=== PATIENT | female | born 1985 | race American Indian/Alaskan Native ===

== ENCOUNTER 2017-07-10 12:54 | Inpatient (IN) | payer OTHER ==
[2017-07-10 13:10] VITALS: BMI 25.9
--- NOTE | 2017-07-10 13:30 | ED PDOC ---
Arrival/HPI - General Chief Complaint: Shortness Of Breath Time Seen by Provider: 07/10/17 12:59 Historian: Patient - History of Present Illness Narrative History of Present Illness (Text): 07/10/17 13:00 No Good is a 31 year old female, whose past medical history includes anemia , who presents to the emergency department complaining of dyspnea on exertion and orthopnea for a few days. Patient notes that she just delivered her son on June 26. She has also experienced feet swelling and generalizes soreness. Patient last lab results on June 08 shows hemoglobin level at 9 and hematocrit level at 31. No other complaints offered at this time. Time/Duration: < week Symptom Onset: Gradual Symptom Course: Unchanged Activities at Onset: Light Context: Home Past Medical History - Provider Review Nursing Documentation Reviewed: Yes - Psychiatric Hx Substance Use: No Family/Social History - Physician Review Nursing Documentation Reviewed: Yes Family/Social History: No Known Family HX Smoking Status: Light Smoker < 10 Cigarettes Daily Hx Alcohol Use: No Hx Substance Use: No Allergies/Home Meds Allergies/Adverse Reactions: Allergies crabs Allergy (Uncoded 07/10/17 13:08) VOMITING Home Medications: Home Meds Medication Instructions Recorded Confirmed Multivit/Folic Acid/I 1 tab PO DAILY 07/10/17 07/10/17 [ Plus] Review of Systems - Physician Review All systems were reviewed & negative as marked: Yes - Review of Systems Constitutional: absent: Fevers, Night Sweats Eyes: absent: Vision Changes ENT: absent: Hearing Changes Respiratory: Other (Orthopnea) Cardiovascular: LEAL Gastrointestinal: absent: Abdominal Pain Genitourinary Female: absent: Dysuria, Frequency Musculoskeletal: absent: Arthralgias, Back Pain Skin: absent: Rash, Pruritis Neurological: absent: Headache, Dizziness Hemo/Lymphatic: absent: Adenopathy Psychiatric: absent: Anxiety, Depression Physical Exam Vital Signs Reviewed: Yes Vital Signs Temp Pulse Resp BP Pulse Ox 07/10/17 21:24 131 H 22 161/117 H 100 07/10/17 20:47 112 H 18 171/111 H 100 07/10/17 20:13 117 H 20 159/93 H 99 07/10/17 19:30 159/93 H 07/10/17 19:13 132 H 18 157/53 H 98 07/10/17 15:22 113 H 19 142/103 H 98 07/10/17 13:51 19 99 07/10/17 13:16 97.7 F 123 H 24 141/98 H 98 07/10/17 13:10 98.7 F 128 H 20 146/103 H 95 Temperature: Afebrile Blood Pressure: Hypertensive Pulse: Tachycardic (hyperdynamic) Respiratory Rate: Normal Appearance: Positive for: Well-Appearing, Non-Toxic, Comfortable Pain Distress: None Mental Status: Positive for: Alert and Oriented X 3 - Systems Exam Head: Present: Atraumatic, Normocephalic Pupils: Present: PERRL Extroacular Muscles: Present: EOMI Conjunctiva: Present: Other (Pale) Mouth: Present: Moist Mucous Membranes Neck: Present: Normal Range of Motion Respiratory/Chest: Present: Clear to Auscultation, Good Air Exchange. No: Respiratory Distress, Accessory Muscle Use Cardiovascular: Present: Regular Rate and Rhythm, Normal S1, S2. No: Murmurs Abdomen: Present: Normal Bowel Sounds. No: Tenderness, Distention, Peritoneal Signs Back: Present: Normal Inspection Upper Extremity: Present: Normal Inspection. No: Cyanosis, Edema Lower Extremity: Present: Normal Inspection. No: Edema Neurological: Present: GCS=15, CN II-XII Intact, Speech Normal Skin: Present: Warm, Dry, Normal Color. No: Rashes Psychiatric: Present: Alert, Oriented x 3, Normal Insight, Normal Concentration Medical Decision Making ED Course and Treatment: 07/10/17 13:34 Impression: 31 year old female complaining of dyspnea on exertion and orthopnea for a few days Differential Diagnosis included but are not limited to: Plan: -- Chest X-ray -- Type and screen -- Urinalysis -- Labs -- Reassess and disposition Progress Notes: EKG: Ordered, reviewed, and independently interpreted the EKG. Rate : 122 BPM Rhythm : Sinus Tachycardia Interpretation : Rightward axis. Non-specific T-wave abnormality. 07/10/17 17:[address]: Dictator : Sharon Heath MD Findings: Visualized portions of the inferior thyroid gland appear unremarkable. The mediastinal and hilar vascular structures appear within normal limits. Bilateral axillary adenopathy measuring up to 14 mm in short axis on the left. Nonspecific soft tissue within the anterior mediastinum, possibly residual thymic tissue. Cardiomegaly with reflux of contrast identified into the hepatic veins may be seen in the setting of elevated right heart pressures. No large central or segmental pulmonary embolus evident. Bibasilar atelectasis/infiltrates. Moderate bilateral pleural effusions. No pneumothorax. Limited visualized portions of the upper abdomen appear grossly unremarkable. No acute osseous abnormality is detected. Impression: Large central or segmental pulmonary embolus identified. Moderate bilateral pleural effusions. Bibasilar atelectasis/infiltrates. Cardiomegaly with reflux of contrast identified into the hepatic veins may be seen in the setting of elevated right heart pressures. No large central or segmental pulmonary embolus evident. Bilateral axillary adenopathy measuring up to 14 mm in short axis on the left. Nonspecific soft tissue within the anterior mediastinum, possibly residual thymic tissue. Additional findings as above. 07/10/17 19:10 CT report came back with a reading of a large PE. Case discussed with Dr. Johns, Regional Production Manager, who told me to call Dr. Mendez. While discussing case with Dr. Mendez, Dr. Johns states that he did not actually see a a PE and to confirm the accuracy report with Dr. Sanchez. Dr. Sanchez states that the report was false, there is no PE but there is cardiomegaly and right heart strain, bilateral atelectasis/infiltrates a picture most consistent with cardiomyopathy. - Lab Interpretations Lab Results: 07/10/17 13:30 07/10/17 13:30 Lab Results 07/10/17 18:55: APTT 29.6 07/10/17 14:20: Blood Type Confirm A POSITIVE 07/10/17 13:55: Urine Color Yellow, Urine Appearance Clear, Urine pH 6.0, Ur Specific [place] 1.025, Urine Protein 100 H, Urine Glucose (UA) Negative, Urine Ketones Negative, Urine Blood Large H, Urine Nitrate Negative, Urine Bilirubin Negative, Urine Urobilinogen 0.2, Ur Leukocyte Esterase Small H, Urine RBC Tntc , Urine WBC 5 - 10, Ur Epithelial Cells 6 - 8 07/10/17 13:32: Blood Type A POSITIVE, Antibody Screen Negative, BBK History Checked No verified bt 07/10/17 13:30: Sodium 142, Potassium 3.9, Chloride 108 H, Carbon Dioxide 23, Anion Gap 15, BUN 14, Creatinine 0.9, Est GFR ( Amer) > 60, Est GFR (Non- Af Amer) > 60, Random Glucose 95, Calcium 9.2, Total Bilirubin 0.3, AST 38 H, ALT 49, Alkaline Phosphatase 192 H, NT-Pro-B Natriuret Pep 8380 H, Total Protein 6.7, Albumin 3.2, Globulin 3.5, Albumin/Globulin Ratio 0.9 L 07/10/17 13:30: PT 11.7, INR 1.03 07/10/17 13:30: WBC 5.7, RBC 4.28, Hgb 11.3 L, Hct 35.8 L, MCV 83.6, MCH 26.4, MCHC 31.6, RDW 14.0, Plt Count 377, MPV 10.1, Gran % 49.3 L, Lymph % (Auto) 39.6 H, [place] % (Auto) 7.7 H, Eos % (Auto) 3.0, Baso % (Auto) 0.4, Gran # 2.81, Lymph # (Auto) 2.3, [place] # (Auto) 0.4, Eos # (Auto) 0.2, Baso # (Auto) 0.02 I have reviewed the lab results: Yes - RAD Interpretation Radiology Orders: 07/10/17 13:27 CHEST PORTABLE [RAD] Stat 07/10/17 14:22 ANGIO CHEST PE PROTOCOL [CT] Stat - Medication Orders Current Medication Orders: Furosemide (Lasix) 20 mg IVP DAILY [facility] Sodium Chloride (Sodium Chloride 0.9%) 1,000 mls @ 100 mls/hr IV .Q10H [facility] Last Admin: 07/10/17 17:49 Dose: 100 mls/hr eMAR Start Stop Document 07/10/17 17:49 MR (Rec: 07/10/17 17:49 MR [id number]) Intravenous Solution Start Date 07/10/17 Start Time 17:49 Discontinued Medications Furosemide (Lasix) 40 mg IVP STAT STA Stop: 07/10/17 19:17 Last Admin: 07/10/17 19:30 Dose: 40 mg MAR Blood Pressure Document 07/10/17 19:30 RG (Rec: 07/10/17 19:30 RG [id number]) Blood Pressure Blood Pressure (100/60-150/90) 159/93 IVP Administration Document 07/10/17 19:30 RG (Rec: 07/10/17 19:30 RG [id number]) Charges for Administration # of IVP Administrations 1 - PA / RETAIL SALES MANAGER / Resident Statement MD/DO has reviewed & agrees with the documentation as recorded. - Scribe Statement The provider has reviewed the documentation as recorded by the Maluibamy Freeman Provider Scribe Attestation: All medical record entries made by the Scribe were at my direction and personally dictated by me. I have reviewed the chart and agree that the record accurately reflects my personal performance of the history, physical exam, medical decision making, and the department course for this patient. I have also personally directed, reviewed, and agree with the discharge instructions and disposition. Disposition/Present on Arrival - Present on Arrival Any Indicators Present on Arrival: No History of DVT/PE: No History of Uncontrolled Diabetes: No Urinary Catheter: No History of Decub. Ulcer: No History Surgical Site Infection Following: None - Disposition Have Diagnosis and Disposition been Completed?: Yes Diagnosis: cardiomyopathy, CHF (congestive heart failure) Disposition: HOSPITALIZED Disposition Time: 21:42 Patient Plan: Admission Condition: GOOD
[2017-07-10 13:50] LABS: BASO # 0.02 K/mm3 (0.0-2.0); BASO % 0.4 % (0.0-3.0); EOS # 0.2 (0.0-0.7); GRAN # 2.81 (1.4-6.5); GRAN % 49.3 % (50.0-68.0); HEMOGLOBIN 11.3 g/dL (12.0-16.0); LYMPH # 2.3 (1.2-3.4); LYMPH % 39.6 % (22.0-35.0); MEAN CELL VOLUME 83.6 fl (80.0-105.0); MEAN CORPUSCULAR HEMOGLOBIN 26.4 pg (25.0-35.0); MEAN CORPUSCULAR HGB CONC 31.6 g/dl (31.0-37.0); MEAN PLATELET VOLUME 10.1 fl (7.0-11.0); MONO # 0.4 (0.1-0.6); MONO % 7.7 % (1.0-6.0); RBC 4.28 10^6/uL (3.5-6.1); WHITE BLOOD COUNT 5.7 10^3/ul (4.5-11.0)
[2017-07-10 13:53] LABS: INR 1.03 (0.93-1.08); PROTHROMBIN TIME 11.7 SECONDS (9.4-12.5)
[2017-07-10 14:11] LABS: URINE APPEARANCE CLEAR (CLEAR); URINE BILIRUBIN NEGATIVE (NEGATIVE); URINE BLOOD LARGE (NEGATIVE); URINE COLOR YELLOW (YELLOW); URINE GLUCOSE (UA) NEGATIVE (NEGATIVE); URINE LEUKOCYTE ESTERASE SMALL Leu/uL (NEGATIVE); URINE PROTEIN 100 mg/dL (<30 mg/dL); URINE UROBILINOGEN 0.2 E.U./dL (<1 E.U./dL)
[2017-07-10 14:13] LABS: ALB/GLOB RATIO 0.9 (1.1-1.8); ALBUMIN 3.2 g/dL (3.0-4.8); ALT/SGPT 49 U/L (7-56); AST/SGOT 38 U/L (14-36); B-TYPE NATRIURETIC PEPTIDE 8380 pg/mL (0-450); BLOOD UREA NITROGEN 14 mg/dL (7-21); CALCIUM 9.2 mg/dL (8.4-10.5); GFR AFRICAN-AMERICAN > 60; GFR NON-AFRICAN AMERICAN > 60
[2017-07-10 14:13] LABS: URINE RBC TNTC /hpf (0-2)
[2017-07-10] MEDS ORDERED: Sodium Chloride 0.9% 1,000 ML IV SCH (16:30)
[2017-07-10] MEDS ORDERED: Iohexol 350 MG/100 ML VIAL ONE (17:08)
--- NOTE | 2017-07-10 17:48 | CT ---
CTA chest PE protocol Indication: Possible PE Technique: Contiguous axial images were obtained through the chest with intravenous contrast enhancement. Sagittal and coronal reconstructions were generated and reviewed. This CT exam was performed using 1 or more of the following dose reduction techniques: Automated exposure control, adjustment of the MAA and/or kV according to patient size, and/or use of iterative reconstruction technique. IV Contrast: Radiation dose (DLP): 360.22 MGy-cm. Comparison: Chest x-ray performed the same day. Findings: Visualized portions of the inferior thyroid gland appear unremarkable. The mediastinal and hilar vascular structures appear within normal limits. Bilateral axillary adenopathy measuring up to 14 mm in short axis on the left. Nonspecific soft tissue within the anterior mediastinum, possibly residual thymic tissue. Cardiomegaly with reflux of contrast identified into the hepatic veins may be seen in the setting of elevated right heart pressures. No large central or segmental pulmonary embolus evident. Bibasilar atelectasis/infiltrates. Moderate bilateral pleural effusions. No pneumothorax. Limited visualized portions of the upper abdomen appear grossly unremarkable. No acute osseous abnormality is detected. Impression: Large central or segmental pulmonary embolus identified. Moderate bilateral pleural effusions. Bibasilar atelectasis/infiltrates. Cardiomegaly with reflux of contrast identified into the hepatic veins may be seen in the setting of elevated right heart pressures. No large central or segmental pulmonary embolus evident. Bilateral axillary adenopathy measuring up to 14 mm in short axis on the left. Nonspecific soft tissue within the anterior mediastinum, possibly residual thymic tissue. Additional findings as above.
--- NOTE | 2017-07-10 20:29 | CP.PCM.CON ---
History of Present Illness - History of Present Illness History of Present Illness: Linus Knapp D.O. PGY-3, Critical Care Consultation Note 31 year old female who presents 2 week post after 38 6/7 weeks vaginal delivery for worsening shortness of breath and orthopnea for the last 2- 3 days. Patient states that she did not have any issues immediately post and that she left the hospital without issues. She has been and doing well, currently on maternity leave, but started to notice this SOB about 3 days ago. Patient ignored it at first as it was transient but then realized today that it has been unrelenting and so decided to come in. Patient denies every having similar issues. Patient otherwise denies any recent immobility, travel, sick contacts, fevers, chills, or otherwise. PMH: as above PSH: denies SH: smokes 1/2 ppd for 11 years, drinks socially, denies drugs, works as secretary bookkeeper at [employer] FH: HTN throughout, pre-DM in mother Meds: prenatals only Allergies: crab (gets nausea and vomiting) Review of Systems - Review of Systems All systems: reviewed and no additional remarkable complaints except - Respiratory Respiratory: Dyspnea Past Patient History - Past Social History Smoking Status: Light Smoker < 10 Cigarettes Daily - HEMATOLOGICAL/ONCOLOGICAL Hx Anemia: Yes - PSYCHIATRIC Hx Substance Use: No - SURGICAL HISTORY Hx Surgeries: No Meds Allergies/Adverse Reactions: Allergies Allergy/AdvReac Type Severity Reaction Status Date / Time crabs Allergy VOMITING Uncoded 07/10/17 13:08 - Medications Medications: Current Medications Furosemide (Lasix) 20 mg IVP DAILY [facility] Sodium Chloride (Sodium Chloride 0.9%) 1,000 mls @ 100 mls/hr IV .Q10H [facility] Last Admin: 07/10/17 17:49 Dose: 100 mls/hr Physical Exam - Constitutional Appears: Non-toxic, No Acute Distress - Head Exam Head Exam: ATRAUMATIC, NORMOCEPHALIC - Eye Exam Eye Exam: EOMI, PERRL - ENT Exam ENT Exam: Mucous Membranes Moist, Normal Oropharynx - Neck Exam Neck exam: Positive for: Normal Inspection - Respiratory Exam Respiratory Exam: Clear to Auscultation Bilateral, Rales. absent: Rhonchi, Wheezes - Cardiovascular Exam Cardiovascular Exam: Tachycardia, +S1, +S2. absent: Gallop, Systolic Murmur - GI/Abdominal Exam GI & Abdominal Exam: Normal Bowel Sounds, Soft. absent: Distended, Tenderness - Extremities Exam Extremities exam: Positive for: pedal edema (trace). Negative for: calf tenderness - Back Exam Back exam: absent: vertebral tenderness - Neurological Exam Neurological exam: Alert, Oriented x3 - Psychiatric Exam Psychiatric exam: Normal Affect, Normal Mood - Skin Skin Exam: Dry, Warm Results - Vital Signs Recent Vital Signs: Last Vital Signs Temp 97.7 F 07/10/17 13:16 Pulse 132 H 07/10/17 19:13 Resp 18 07/10/17 19:13 BP 159/93 H 07/10/17 19:30 Pulse Ox 98 07/10/17 19:13 - Labs Result Diagrams: 07/10/17 13:30 07/10/17 13:30 Assessment & Plan - Assessment and Plan (Free Text) Assessment: 31 year old female who presents 2 week post after 38 6/7 weeks vaginal delivery for worsening shortness of breath and orthopnea for the last 2- 3 days Plan: Neurological Nonfocal, no issues Cardiovascular Likely cardiomyopathy Cardio consulted Started on lasix Echo for tomorrow AM Concern for possible arrhythmias, following closely Continuous O2 monitoring Pulmnologic Slight crackles, on lasix BNP elevated CT chest reviewed, moderate R pleural effusion, stable at this time will monitor before consider thoracentesis Saturating well on room air PRN O2 per NC @ 2L GI Regular diet No acute issues Nephro/Electrolytes No MARIBELL or otherwise Monitoring IxOs Daily weights Hematologic No signs of bleeding, HgB stable HD stable Monitoring DVT ppx: SCDs Patient was seen and examined and case was discussed at length with attending physician - Date & Time Date: 07/10/17 Time: 21:30
[2017-07-11 07:22] LABS: BASO # 0.02 K/mm3 (0.0-2.0); BASO % 0.3 % (0.0-3.0); EOS # 0.1 (0.0-0.7); EOS % 1.4 % (1.5-5.0); GRAN # 3.33 (1.4-6.5); GRAN % 57.5 % (50.0-68.0); HEMOGLOBIN 11.7 g/dL (12.0-16.0); LYMPH # 1.9 (1.2-3.4); LYMPH % 33.5 % (22.0-35.0); MEAN CELL VOLUME 83.1 fl (80.0-105.0); MEAN CORPUSCULAR HEMOGLOBIN 26.1 pg (25.0-35.0); MEAN CORPUSCULAR HGB CONC 31.4 g/dl (31.0-37.0); MEAN PLATELET VOLUME 10.2 fl (7.0-11.0); MONO # 0.4 (0.1-0.6); MONO % 7.3 % (1.0-6.0); RBC 4.49 10^6/uL (3.5-6.1); RED CELL DISTRIBUTION WIDTH 13.8 % (11.5-14.5); WHITE BLOOD COUNT 5.8 10^3/ul (4.5-11.0)
--- NOTE | 2017-07-11 07:26 | CP.CCUPN ---
<Evans Mckenna - Last Filed: 07/11/17 10:24> CCU Subjective - Physician Review Subjective (Free Text): Evasn Mckenna PGY1 ICU Progress Note for Dr. Shearer Patient was seen and examined bedside in ICU. She states that she slept well and that her breathing has improved. She denies any chest pain, n/v, leg swelling. She states that her was complicated by gestational diabetes. CCU Objective - Vital Signs / Intake & Output Vital Signs (Last 4 hours): Vital Signs Temp Pulse Resp BP Pulse Ox 07/11/17 06:21 136 H 17 95 07/11/17 06:10 127 H 93 L 07/11/17 06:00 131 H 29 H 158/112 H 98 07/11/17 05:50 125 H 31 H 96 07/11/17 05:40 124 H 33 H 96 07/11/17 05:30 145/82 07/11/17 05:29 124 H 30 H 94 L 07/11/17 05:20 137 H 40 H 94 L 07/11/17 05:10 130 H 29 H 94 L 07/11/17 05:00 129 H 24 146/94 H 97 07/11/17 04:50 129 H 34 H 92 L 07/11/17 04:40 126 H 36 H 93 L 07/11/17 04:30 133 H 24 143/101 H 94 L 07/11/17 04:20 133 H 46 H 90 L 07/11/17 04:10 128 H 33 H 93 L 07/11/17 04:00 99.6 F 131 H 32 H 138/90 96 07/11/17 03:50 132 H 97 07/11/17 03:40 133 H 31 H 95 07/11/17 03:30 132 H 31 H 139/93 H 95 Intake and Output (Last 8hrs): Intake & Output 07/10/17 07/11/17 07/11/17 22:59 06:59 14:59 Output Total 1000 Balance -1000 Weight 149 lb 4.8 oz Output: Urine 1000 Urine, Voided 1000 Other: Voiding Method Bedside Commode - Physical Exam Head: Positive for: Atraumatic, Normocephalic Pupils: Positive for: PERRL Extroacular Muscles: Positive for: EOMI Mouth: Positive for: Moist Mucous Membranes Neck: Positive for: Normal Range of Motion Respiratory/Chest: Positive for: Clear to Auscultation, Good Air Exchange. Negative for: Respiratory Distress, Accessory Muscle Use, Wheezes, Rales, Rhonchi, Tachypneic Cardiovascular: Positive for: Normal S1, S2, Tachycardic. Negative for: Regular Rate and Rhythm, Murmurs Abdomen: Positive for: Normal Bowel Sounds. Negative for: Tenderness, Distention, Peritoneal Signs Back: Positive for: Normal Inspection Upper Extremity: Positive for: Normal Inspection. Negative for: Cyanosis, Edema Lower Extremity: Positive for: Normal Inspection. Negative for: Edema Neurological: Positive for: GCS=15, CN II-XII Intact, Speech Normal Skin: Positive for: Warm, Normal Color. Negative for: Rashes Psychiatric: Positive for: Alert, Oriented x 3, Normal Insight, Normal Concentration - Medications Active Medications: Active Medications Generic Name Dose Route Start Last Admin Trade Name Freq PRN Reason Stop Dose Admin Furosemide 20 mg 07/11/17 10:00 Lasix IVP DAILY NATALIA - Patient Studies Lab Studies: Lab Studies 07/10/17 Range/Units 22:07 POC Glucose (mg/dL) 170 H (65-110) mg/dL Laboratory Results - last 24 hr 07/10/17 22:07 POC Glucose (mg/dL) 170 H Review of Systems - Review of Systems All systems: reviewed and no additional remarkable complaints except (as per HPI ) Critical Care Progress Note - Extremities/Vascular Does the Patient have a Central Venous Catheter?: No Does the Patient need a Central Venous Catheter?: No Does the Patient have a Brody Catheter?: No Does the Patient need a Brody Catheter?: No - Prophylaxis GI Prophylaxis GI: Pepsid - Prophylaxis DVT Prophylaxis DVT: SCDs, Ambulatory Assessment/Plan - Assessment and Plan (Free Text) Assessment: 31 yo F with a PMH of gestational diabetes and tobacco use who presented to ED with shortness of breath and tachycardia for 2 days. CTA was negative for pulmonary embolism. Symptoms likely 2/2 cardiomyopathy. Plan: Neuro: at baseline, awake and alert monitor for changes in mental status Cardio: symptoms likely 2/2 cardiomyopathy given timeline and no prior hx of chf BP elevated, states she was never told she had HTN tachycardia cont Lasix started on Lopressor Echo done, pending official read Cardiology consulted, recs appreciated Pulm: CTA was negative for PE shortness of breath likely 2/2 cardiomyopathy O2 via NC PRN GI: GI ppx HHD Renal: UOP is preserved monitor electrolyte changes ID: no signs of infection Heme: DVT ppx H/H stable monitor for any changes Endo: maintain normoglycemia Diet: DVT ppx: SCDs and ambulatory GI ppx: pepcid Dispo: patient is hemodynamically stable and is in no acute respiratory distress. will monitor for signs of respiratory distress and d/c tele once cleared by cardio Patient was seen, examined and discussed with attending, Dr. Janki Mckenna PGY1 Pager # [phone] <Brad Shearer - Last Filed: 07/11/17 10:50> CCU Objective - Vital Signs / Intake & Output Vital Signs (Last 4 hours): Vital Signs Temp Pulse Resp BP Pulse Ox 07/11/17 10:00 139/98 H 07/11/17 09:59 127 H 48 H 93 L 07/11/17 09:56 128 H 07/11/17 09:30 137 H 41 H 157/108 H 97 07/11/17 09:01 150/107 H 07/11/17 09:00 133 H 40 H 150/107 H 97 07/11/17 08:57 134 H 150/107 H 07/11/17 08:30 131 H 44 H 148/106 H 97 07/11/17 08:00 98 F 129 H 43 H 154/110 H 97 07/11/17 07:00 123 H 38 H 141/102 H 96 Intake and Output (Last 8hrs): Intake & Output 07/10/17 07/11/17 07/11/17 22:59 06:59 14:59 Output Total 1000 Balance -1000 Weight 149 lb 4.8 oz Output: Urine 1000 Urine, Voided 1000 Other: Voiding Method Bedside Commode - Medications Active Medications: Active Medications Generic Name Dose Route Start Last Admin Trade Name Freq PRN Reason Stop Dose Admin Famotidine 20 mg 07/11/17 22:00 Pepcid PO HS NATALIA Furosemide 20 mg 07/11/17 10:00 07/11/17 09:01 Lasix IVP 20 mg DAILY NATALIA Administration - Patient Studies Lab Studies: Lab Studies 07/11/17 07/11/17 07/11/17 Range/Units 07:50 07:50 07:28 WBC (4.5-11.0) 10^3/ul RBC (3.5-6.1) 10^6/uL Hgb (12.0-16.0) g/dL Hct (36.0-48.0) % MCV (80.0-105.0) fl MCH (25.0-35.0) pg MCHC (31.0-37.0) g/dl RDW (11.5-14.5) % Plt Count (120.0-450.0) 10^3/uL MPV (7.0-11.0) fl Gran % (50.0-68.0) % Lymph % (Auto) (22.0-35.0) % [place] % (Auto) (1.0-6.0) % Eos % (Auto) (1.5-5.0) % Baso % (Auto) (0.0-3.0) % Gran # (1.4-6.5) Lymph # (Auto) (1.2-3.4) [place] # (Auto) (0.1-0.6) Eos # (Auto) (0.0-0.7) Baso # (Auto) (0.0-2.0) K/mm3 Sodium 142 (132-148) mmol/L Potassium 3.9 (3.6-5.0) mmol/L Chloride 110 H (98-107) mmol/L Carbon Dioxide 24 (21-33) mmol/L Anion Gap 13 (10-20) BUN 12 (7-21) mg/dL Creatinine 0.9 (0.7-1.2) mg/dl Est GFR ( Amer) > 60 Est GFR (Non-Af Amer) > 60 POC Glucose (mg/dL) 114 H (65-110) mg/dL Random Glucose 102 (70-110) mg/dL Calcium 9.1 (8.4-10.5) mg/dL Magnesium 1.8 (1.7-2.2) mg/dL Total Bilirubin 0.4 (0.2-1.3) mg/dL AST 38 H (14-36) U/L ALT 51 (7-56) U/L Alkaline Phosphatase 191 H (38-126) U/L Total Protein 6.8 (5.8-8.3) g/dL Albumin 3.3 (3.0-4.8) g/dL Globulin 3.5 gm/dL Albumin/Globulin Ratio 0.9 L (1.1-1.8) Triglycerides 158 (35-160) mg/dL Cholesterol 183 (130-200) mg/dL LDL Cholesterol Direct 101 (0-129) mg/dL HDL Cholesterol 42 (29-60) mg/dL Free T4 1.02 (0.78-2.19) ng/dL TSH 3rd Generation 3.01 (0.46-4.68) mIU/mL 07/11/17 07/10/17 Range/Units 05:00 22:07 WBC 5.8 (4.5-11.0) 10^3/ul RBC 4.49 (3.5-6.1) 10^6/uL Hgb 11.7 L (12.0-16.0) g/dL Hct 37.3 (36.0-48.0) % MCV 83.1 (80.0-105.0) fl MCH 26.1 (25.0-35.0) pg MCHC 31.4 (31.0-37.0) g/dl RDW 13.8 (11.5-14.5) % Plt Count 387 (120.0-450.0) 10^3/uL MPV 10.2 (7.0-11.0) fl Gran % 57.5 (50.0-68.0) % Lymph % (Auto) 33.5 (22.0-35.0) % [place] % (Auto) 7.3 H (1.0-6.0) % Eos % (Auto) 1.4 L (1.5-5.0) % Baso % (Auto) 0.3 (0.0-3.0) % Gran # 3.33 (1.4-6.5) Lymph # (Auto) 1.9 (1.2-3.4) [place] # (Auto) 0.4 (0.1-0.6) Eos # (Auto) 0.1 (0.0-0.7) Baso # (Auto) 0.02 (0.0-2.0) K/mm3 Sodium (132-148) mmol/L Potassium (3.6-5.0) mmol/L Chloride (98-107) mmol/L Carbon Dioxide (21-33) mmol/L Anion Gap (10-20) BUN (7-21) mg/dL Creatinine (0.7-1.2) mg/dl Est GFR ( Amer) Est GFR (Non-Af Amer) POC Glucose (mg/dL) 170 H (65-110) mg/dL Random Glucose (70-110) mg/dL Calcium (8.4-10.5) mg/dL Magnesium (1.7-2.2) mg/dL Total Bilirubin (0.2-1.3) mg/dL AST (14-36) U/L ALT (7-56) U/L Alkaline Phosphatase (38-126) U/L Total Protein (5.8-8.3) g/dL Albumin (3.0-4.8) g/dL Globulin gm/dL Albumin/Globulin Ratio (1.1-1.8) Triglycerides (35-160) mg/dL Cholesterol (130-200) mg/dL LDL Cholesterol Direct (0-129) mg/dL HDL Cholesterol (29-60) mg/dL Free T4 (0.78-2.19) ng/dL TSH 3rd Generation (0.46-4.68) mIU/mL Laboratory Results - last 24 hr 07/10/17 07/11/17 07/11/17 22:07 05:00 07:28 WBC 5.8 RBC 4.49 Hgb 11.7 L Hct 37.3 MCV 83.1 MCH 26.1 MCHC 31.4 RDW 13.8 Plt Count 387 MPV 10.2 Gran % 57.5 Lymph % (Auto) 33.5 [place] % (Auto) 7.3 H Eos % (Auto) 1.4 L Baso % (Auto) 0.3 Gran # 3.33 Lymph # (Auto) 1.9 [place] # (Auto) 0.4 Eos # (Auto) 0.1 Baso # (Auto) 0.02 Sodium Potassium Chloride Carbon Dioxide Anion Gap BUN Creatinine Est GFR ( Amer) Est GFR (Non-Af Amer) POC Glucose (mg/dL) 170 H 114 H Random Glucose Calcium Magnesium Total Bilirubin AST ALT Alkaline Phosphatase Total Protein Albumin Globulin Albumin/Globulin Ratio Triglycerides Cholesterol LDL Cholesterol Direct HDL Cholesterol Free T4 TSH 3rd Generation 07/11/17 07/11/17 07:50 07:50 WBC RBC Hgb Hct MCV MCH MCHC RDW Plt Count MPV Gran % Lymph % (Auto) [place] % (Auto) Eos % (Auto) Baso % (Auto) Gran # Lymph # (Auto) [place] # (Auto) Eos # (Auto) Baso # (Auto) Sodium 142 Potassium 3.9 Chloride 110 H Carbon Dioxide 24 Anion Gap 13 BUN 12 Creatinine 0.9 Est GFR ( Amer) > 60 Est GFR (Non-Af Amer) > 60 POC Glucose (mg/dL) Random Glucose 102 Calcium 9.1 Magnesium 1.8 Total Bilirubin 0.4 AST 38 H ALT 51 Alkaline Phosphatase 191 H Total Protein 6.8 Albumin 3.3 Globulin 3.5 Albumin/Globulin Ratio 0.9 L Triglycerides 158 Cholesterol 183 LDL Cholesterol Direct 101 HDL Cholesterol 42 Free T4 1.02 TSH 3rd Generation 3.01 Assessment/Plan - Assessment and Plan (Free Text) Assessment: Patient seen and examined on rounds with resident, agree with note with following additions/exceptions: Patient is 31yo AAF, without sig PMHx, recently gave , , complicated by gestational diabetes, no CV problems, presented with SOB. Patient had CT chest with contrast done which showed NO PE, but did demonstrate bilateral pleural effusions, given Lasix 40mg IV x 1. ECHO done this morning, official read pending, cardiology eval pending. On ECHO EF grossly depressed, ~ 25%. CHF, likely post cardiomyopathy SOB Pleural Effusions Recommend: - supp o2 as needed - monitor off abx, check procal - BP control - Start Low dose BB - Lasix IV diuresis - follow up ECHO read - CHF optimization - follow up cardiology, may need cath - ASA - GI ppx - DVT ppx - monitor in MICU
[2017-07-11 08:06] LABS: ALB/GLOB RATIO 0.9 (1.1-1.8); ALBUMIN 3.3 g/dL (3.0-4.8); ALT/SGPT 51 U/L (7-56); AST/SGOT 38 U/L (14-36); BLOOD UREA NITROGEN 12 mg/dL (7-21); CALCIUM 9.1 mg/dL (8.4-10.5); GFR AFRICAN-AMERICAN > 60; GFR NON-AFRICAN AMERICAN > 60; HDL CHOLESTEROL 42 mg/dL (29-60)
[2017-07-11 08:17] LABS: LDL CHOLESTEROL 101 mg/dL (0-129)
[2017-07-11 08:21] LABS: FREE T4 1.02 ng/dL (0.78-2.19)
--- NOTE | 2017-07-11 08:40 | RAD ---
HISTORY: Dyspnea on Exertion and Orthopnea COMPARISON: No prior. FINDINGS: LUNGS: No active pulmonary disease. PLEURA: No significant pleural effusion identified, no pneumothorax apparent. CARDIOVASCULAR: Mild vascular congestion OSSEOUS STRUCTURES: No significant abnormalities. VISUALIZED UPPER ABDOMEN: Normal. OTHER FINDINGS: None. IMPRESSION: Mild vascular congestion
[2017-07-11] MEDS: Milrinone 20mg/100ml D5W 100 ML IV PRN (13:47)
[2017-07-11] MEDS ORDERED: Primacor 1 mg/ml Inj (10 ml) IVP ONE (13:49)
--- NOTE | 2017-07-11 19:28 | CARD ---
APPROVED REPORT EXAM: Two-dimensional and M-mode echocardiogram with Doppler and color Doppler. INDICATION POST- CARDIOMYOPATHY 2D DIMENSIONS Left Atrium (2D)4.3 (1.6-4.0cm)IVSd1.1 (0.7-1.1cm) LVDd5.4 (3.9-5.9cm)PWd1.2 (0.7-1.1cm) LVDs4.8 (2.5-4.0cm)FS (%) 11.5 % LVEF (%)25.0 (>50%) M-Mode DIMENSIONS Aortic Root2.10 (2.2-3.7cm)Aortic Cusp Exc.1.20 (1.5-2.0cm) Mitral Valve E/A ratio0.0 TDI E/Lateral E'0.0E/Medial E'0.0 Tricuspid Valve TR Peak [id number] Peak Gr.71mmHg [id number] LEFT VENTRICLE The Left Ventricle is mildly dilated. There is normal left ventricular wall thickness. The systolic function is severely impaired. There is global hypokinesis of the left ventricle. No left ventricle thrombus noted on this study. RIGHT VENTRICLE The right ventricle is mildly dilated.RV Systolic function is severely reduced. There is normal right ventricular wall thickness. Systolic function is severely reduced. ATRIA The left atrium is borderline dilated. The right atrium is borderline dilated. AORTIC VALVE The aortic valve is normal in structure. No aortic regurgitation is present. There is no aortic valvular stenosis. MITRAL VALVE The mitral valve is mildly thickened. Mitral regurgitation is severe. There is no mitral valve stenosis. TRICUSPID VALVE There is severe tricuspid regurgitation. There is severe pulmonary hypertension. PULMONIC VALVE There is moderate pulmonic valvular regurgitation. PERICARDIAL EFFUSION There is a small circumferential pericardial effusion. <Conclusion> The Left Ventricle is mildly dilated. There is normal left ventricular wall thickness. The systolic function is severely impaired. There is global hypokinesis of the left ventricle. No left ventricle thrombus noted on this study. The right ventricle is mildly dilated.RV Systolic function is severely reduced. Mitral regurgitation is severe. There is severe tricuspid regurgitation. There is severe pulmonary hypertension. There is moderate pulmonic valvular regurgitation. There is a small circumferential pericardial effusion.
--- NOTE | 2017-07-11 20:46 | HP ---
HISTORY OF PRESENT ILLNESS: The patient is 31 years old who came to emergency room because of increasing shortness of breath. The patient states she was unable to walk small distance. She cannot lie flat. The patient is 1 and para 1. She gave to a full-term baby 2 weeks ago and it was normal vaginal delivery, but after a week or so, she started to have generalized weakness and shortness of breath. The patient denies any fever or chills. No excessive vaginal bleeding. No history of nausea or vomiting. No headache. No numbness. No fever or chills. PAST MEDICAL HISTORY: She has no significant past medical history. FAMILY HISTORY: Significant for hypertension and borderline diabetes in mom. MEDICATIONS: She only takes vitamins. ALLERGY: SHE IS ALLERGIC TO CRABS. SOCIAL HISTORY: She is . She smokes half pack per day. Socially drinks. 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 REVIEW OF SYSTEMS: Generalized weakness and shortness of breath on walking. PHYSICAL EXAMINATION: GENERAL: She is awake and alert, able to communicate. VITAL SIGNS: She is afebrile, pulse 127, respirations 41, blood pressure 139/98. LUNGS: Bilateral fair airflow. No rhonchi, but soft crackle at bases. HEART: S1 and S2 audible. ABDOMEN: Soft. Nontender. No rebound. No guarding. NEUROLOGIC: The patient is awake, alert, oriented, communicative. LABORATORY EXAM: WBC is 5.8, hemoglobin 11.7, hematocrit 37.3, platelet 387. PT is 11.7, INR 1.03. Chemistry: Sodium 142, potassium 3.9, chloride 110, CO2 of 24, BUN 12, creatinine 0.9, blood sugar 102, AST 38, alk phos is 191. Urinalysis is large blood, small leukocyte. Echocardiogram is pending. CT angio unremarkable. No pulmonary embolism seen. Bilateral pleural effusion with bibasilar atelectasis. ASSESSMENT: 1. Probably cardiomyopathy. 2. Bilateral pleural effusion. 3. Mild anemia PLAN: We will diurese the patient. Follow up echocardiogram. We will discuss with . Gil Mccord MD [facility] # [id number]
--- NOTE | 2017-07-11 21:26 | CARD ---
APPROVED REPORT EKG Measurement Heart [id number] <Conclusion> Poor data quality, interpretation may be adversely affected Sinus tachycardia Possible Left atrial enlargement Rightward axis Nonspecific T wave abnormality Abnormal ECG
--- NOTE | 2017-07-11 23:10 | CON ---
DATE: 07/11/2017 HISTORY OF PRESENT ILLNESS: The patient is a 31-year-old woman who presents with 3-day duration of progressive shortness of breath with orthopnea and exertional dyspnea. The patient is status post normal delivery of her first baby, which was a normal delivery, approximately 2 weeks ago. Her delivery was complicated by pedal edema during her and delivery as well as gestational diabetes. Prior to her , there were no issues related to her heart. No previous cardiac evaluation, no dyspnea, and normal exertion. No diabetes mellitus. No hypertension. SOCIAL HISTORY: The patient smokes. REVIEW OF SYSTEMS: A 14-point review of systems is reviewed in detail. Besides her pedal edema, the patient complained of progressive orthopnea, exertional dyspnea with no chest pain, no syncope and no palpitations noted. PHYSICAL EXAMINATION VITAL SIGNS: Blood pressure is 139/98, heart rate is sinus tachycardia in the 120s. NECK: Negative JVD. LUNGS: Crackles at the bases. HEART: Revealed S1, S2 with 2/6 systolic murmur. EXTREMITIES: Trace edema. EKG shows sinus tachycardia with no acute changes. LABORATORY DATA: Hemoglobin is 11.7. Chemistries: Glucose is 114. BUN and creatinine are unremarkable. Her proBNP was greater than 8000. Chest x-ray is consistent with CHF. CT scan of the chest revealed no pulmonary embolism despite previous confusion during the reporting. Bilateral pleural effusions are noted. Echocardiogram revealed four-chamber enlargement with an LV systolic ejection fraction of approximately 20%-25%. There is [id number] mitral regurgitation as well as tricuspid regurgitation. No flail leaflet of the mitral valve was noted. Pulmonary pressures were elevated. IMPRESSION: 1. Acute systolic congestive heart failure/pulmonary edema. 2. cardiomyopathy. 3. Significant mitral regurgitation and tricuspid regurgitation, likely due to acute dilatation of the vascular annulus. 4. Pulmonary hypertension, which is unclear in terms of his quantitation. 5. Hypertension. 6. Dyspnea. PLAN: Given these findings, we will start the patient on IV Lasix, low-doses of afterload reducing with ELIUD inhibitors. Low-dose Coreg. We will start the patient on ionotropic therapy since the patient is still short of breath after Lasix. I have discussed with the patient as well as her mother on the telephone line about the dangers of breast feeding while on this medication. The patient needs to cease breast-feeding right away given the likelihood of the medication going into her breast milk. I have discussed with the patient her condition, and I have discussed the various therapeutic and possible diagnostic options. Lico Vazquez MD
[2017-07-12] MEDS: Milrinone 20mg/100ml D5W 100 ML IV PRN (01:48)
[2017-07-12 06:54] LABS: HEMOGLOBIN 11.7 g/dL (12.0-16.0); MEAN CELL VOLUME 82.5 fl (80.0-105.0); MEAN CORPUSCULAR HEMOGLOBIN 25.9 pg (25.0-35.0); MEAN CORPUSCULAR HGB CONC 31.5 g/dl (31.0-37.0); MEAN PLATELET VOLUME 10.1 fl (7.0-11.0); RBC 4.51 10^6/uL (3.5-6.1); RED CELL DISTRIBUTION WIDTH 13.7 % (11.5-14.5); WHITE BLOOD COUNT 5.7 10^3/ul (4.5-11.0)
[2017-07-12 07:45] LABS: ALBUMIN 3.2 g/dL (3.0-4.8); ALT/SGPT 46 U/L (7-56); AST/SGOT 48 U/L (14-36); BLOOD UREA NITROGEN 15 mg/dL (7-21); CALCIUM 8.7 mg/dL (8.4-10.5); GFR AFRICAN-AMERICAN > 60; GFR NON-AFRICAN AMERICAN > 60
[2017-07-12] MEDS ORDERED: Magnesium Sulfate 1 gm in D5W 1 GM/100 ML BAG IVPB ONE (07:53)
--- NOTE | 2017-07-12 08:03 | CP.CCUPN ---
<Evans Mckenna - Last Filed: 07/12/17 09:52> CCU Subjective - Physician Review Subjective (Free Text): Evans Mckenna PGY1 ICU Progress Note for Dr. Shearer Patient was seen and examined bedside in ICU. She has no complaints and no acute overnight events. she only complains of shortness of breath when she lays flat but has no complaints otherwise. denies chest pain, n/v, or leg swelling. CCU Objective - Vital Signs / Intake & Output Intake and Output (Last 8hrs): Intake & Output 07/11/17 07/12/17 07/12/17 22:59 06:59 14:59 Intake Total 1238 100 Output Total 1300 Balance -62 100 Intake: IV 38 100 Left Forearm 38 Oral 1200 Output: Urine 1300 Urine, Voided 1300 Other: # Bowel Movements 1 - Physical Exam Head: Positive for: Atraumatic, Normocephalic Pupils: Positive for: PERRL Extroacular Muscles: Positive for: EOMI Mouth: Positive for: Moist Mucous Membranes Neck: Positive for: Normal Range of Motion Respiratory/Chest: Positive for: Clear to Auscultation, Good Air Exchange. Negative for: Respiratory Distress, Accessory Muscle Use, Wheezes, Rales, Rhonchi, Tachypneic Cardiovascular: Positive for: Normal S1, S2, Tachycardic. Negative for: Regular Rate and Rhythm, Murmurs Abdomen: Positive for: Normal Bowel Sounds. Negative for: Tenderness, Distention, Peritoneal Signs Back: Positive for: Normal Inspection Upper Extremity: Positive for: Normal Inspection. Negative for: Cyanosis, Edema Lower Extremity: Positive for: Normal Inspection. Negative for: Edema Neurological: Positive for: GCS=15, CN II-XII Intact, Speech Normal Skin: Positive for: Warm, Normal Color. Negative for: Rashes Psychiatric: Positive for: Alert, Oriented x 3, Normal Insight, Normal Concentration - Medications Active Medications: Active Medications Generic Name Dose Route Start Last Admin Trade Name Freq PRN Reason Stop Dose Admin Acetaminophen 650 mg 07/12/17 03:43 07/12/17 03:53 Tylenol 325mg Tab PO 650 mg Q6H PRN Administration Fever >100.4 F Famotidine 20 mg 07/11/17 22:00 07/11/17 21:24 Pepcid PO 20 mg HS NATALIA Administration Furosemide 40 mg 07/11/17 22:00 07/11/17 21:24 Lasix IVP 40 mg Q12 NATALIA Administration Milrinone Lactate/Dextrose 100 mls @ 7.619 mls/hr 07/11/17 13:39 07/12/17 01: 48 Primacor 20mg/100ml D5w IV 0.375 mcg/kg/min .Q13H8M PRN 7.619 mls/hr TITRATE PER MD ORDER Administration Protocol 0.375 MCG/KG/MIN Magnesium Sulfate/Dextrose 1 gm in 100 mls @ 100 mls/hr 07/12/17 07:53 Magnesium Sulfate 1 Gm/100 Ml D5w IVPB 07/12/17 08:52 ONCE ONE Lisinopril 5 mg 07/11/17 13:45 07/11/17 13:54 Zestril PO 5 mg DAILY NATALIA Administration - Patient Studies Lab Studies: Lab Studies 07/12/17 07/12/17 07/11/17 Range/Units 06:00 06:00 07:50 WBC 5.7 (4.5-11.0) 10^3/ul RBC 4.51 (3.5-6.1) 10^6/uL Hgb 11.7 L (12.0-16.0) g/dL Hct 37.2 (36.0-48.0) % MCV 82.5 (80.0-105.0) fl MCH 25.9 (25.0-35.0) pg MCHC 31.5 (31.0-37.0) g/dl RDW 13.7 (11.5-14.5) % Plt Count 357 (120.0-450.0) 10^3/uL MPV 10.1 (7.0-11.0) fl Sodium 138 (132-148) mmol/L Potassium 3.8 (3.6-5.0) mmol/L Chloride 104 (98-107) mmol/L Carbon Dioxide 24 (21-33) mmol/L Anion Gap 14 (10-20) BUN 15 (7-21) mg/dL Creatinine 1.0 (0.7-1.2) mg/dl Est GFR ( Amer) > 60 Est GFR (Non-Af Amer) > 60 Random Glucose 102 (70-110) mg/dL Calcium 8.7 (8.4-10.5) mg/dL Magnesium 1.6 L (1.7-2.2) mg/dL Total Bilirubin 0.4 (0.2-1.3) mg/dL AST 48 H D (14-36) U/L ALT 46 (7-56) U/L Alkaline Phosphatase 197 H (38-126) U/L Total Protein 6.6 (5.8-8.3) g/dL Albumin 3.2 (3.0-4.8) g/dL Globulin 3.4 gm/dL Albumin/Globulin Ratio 1.0 L (1.1-1.8) Triglycerides (35-160) mg/dL Cholesterol (130-200) mg/dL LDL Cholesterol Direct (0-129) mg/dL HDL Cholesterol (29-60) mg/dL Free T4 1.02 (0.78-2.19) ng/dL TSH 3rd Generation 3.01 (0.46-4.68) mIU/mL 07/11/17 Range/Units 07:50 WBC (4.5-11.0) 10^3/ul RBC (3.5-6.1) 10^6/uL Hgb (12.0-16.0) g/dL Hct (36.0-48.0) % MCV (80.0-105.0) fl MCH (25.0-35.0) pg MCHC (31.0-37.0) g/dl RDW (11.5-14.5) % Plt Count (120.0-450.0) 10^3/uL MPV (7.0-11.0) fl Sodium 142 (132-148) mmol/L Potassium 3.9 (3.6-5.0) mmol/L Chloride 110 H (98-107) mmol/L Carbon Dioxide 24 (21-33) mmol/L Anion Gap 13 (10-20) BUN 12 (7-21) mg/dL Creatinine 0.9 (0.7-1.2) mg/dl Est GFR ( Amer) > 60 Est GFR (Non-Af Amer) > 60 Random Glucose 102 (70-110) mg/dL Calcium 9.1 (8.4-10.5) mg/dL Magnesium 1.8 (1.7-2.2) mg/dL Total Bilirubin 0.4 (0.2-1.3) mg/dL AST 38 H (14-36) U/L ALT 51 (7-56) U/L Alkaline Phosphatase 191 H (38-126) U/L Total Protein 6.8 (5.8-8.3) g/dL Albumin 3.3 (3.0-4.8) g/dL Globulin 3.5 gm/dL Albumin/Globulin Ratio 0.9 L (1.1-1.8) Triglycerides 158 (35-160) mg/dL Cholesterol 183 (130-200) mg/dL LDL Cholesterol Direct 101 (0-129) mg/dL HDL Cholesterol 42 (29-60) mg/dL Free T4 (0.78-2.19) ng/dL TSH 3rd Generation (0.46-4.68) mIU/mL Laboratory Results - last 24 hr 07/11/17 07/11/17 07/12/17 07:50 07:50 06:00 WBC RBC Hgb Hct MCV MCH MCHC RDW Plt Count MPV Sodium 142 138 Potassium 3.9 3.8 Chloride 110 H 104 Carbon Dioxide 24 24 Anion Gap 13 14 BUN 12 15 Creatinine 0.9 1.0 Est GFR ( Amer) > 60 > 60 Est GFR (Non-Af Amer) > 60 > 60 Random Glucose 102 102 Calcium 9.1 8.7 Magnesium 1.8 1.6 L Total Bilirubin 0.4 0.4 AST 38 H 48 H D ALT 51 46 Alkaline Phosphatase 191 H 197 H Total Protein 6.8 6.6 Albumin 3.3 3.2 Globulin 3.5 3.4 Albumin/Globulin Ratio 0.9 L 1.0 L Triglycerides 158 Cholesterol 183 LDL Cholesterol Direct 101 HDL Cholesterol 42 Free T4 1.02 TSH 3rd Generation 3.01 07/12/17 06:00 WBC 5.7 RBC 4.51 Hgb 11.7 L Hct 37.2 MCV 82.5 MCH 25.9 MCHC 31.5 RDW 13.7 Plt Count 357 MPV 10.1 Sodium Potassium Chloride Carbon Dioxide Anion Gap BUN Creatinine Est GFR ( Amer) Est GFR (Non-Af Amer) Random Glucose Calcium Magnesium Total Bilirubin AST ALT Alkaline Phosphatase Total Protein Albumin Globulin Albumin/Globulin Ratio Triglycerides Cholesterol LDL Cholesterol Direct HDL Cholesterol Free T4 TSH 3rd Generation Review of Systems - Review of Systems All systems: reviewed and no additional remarkable complaints except (as per HPI ) Critical Care Progress Note - Extremities/Vascular Does the Patient have a Central Venous Catheter?: No Does the Patient need a Central Venous Catheter?: No Does the Patient have a Brody Catheter?: No Does the Patient need a Brody Catheter?: No - Prophylaxis GI Prophylaxis GI: Pepsid - Prophylaxis DVT Prophylaxis DVT: SCDs, Ambulatory Assessment/Plan - Assessment and Plan (Free Text) Assessment: 31 yo F with a PMH of gestational diabetes and tobacco use who presented to ED with shortness of breath and tachycardia for 2 days. CTA was negative for pulmonary embolism. Symptoms likely 2/2 cardiomyopathy. Plan: Neuro: at baseline, awake and alert monitor for changes in mental status Cardio: symptoms likely 2/2 cardiomyopathy given timeline and no prior hx of chf BP improved tachycardia Echo showed 25% EF, LV hypokinesis, dilated RV w/ decreased systolic function, severe MR, TR, pulm hypertension Cardiology consulted, rec ionotropic rx, IV lasix, low dose ACEi and low dose Coreg, and to avoid breast feeding due to meds cont Lasix 40mg IVP q12 cont Lisinopril 5 daily cont Coreg 6.25mg BID cont Primacor drip Pulm: CTA was negative for PE shortness of breath likely 2/2 cardiomyopathy O2 via NC PRN GI: GI ppx HHD Renal: UOP is preserved monitor electrolyte changes ID: no signs of infection Heme: DVT ppx H/H stable monitor for any changes Endo: maintain euglycemia Diet: DVT ppx: SCDs and ambulatory GI ppx: pepcid Dispo: patient is hemodynamically stable and is in no acute respiratory distress. will monitor for signs of respiratory distress. cleared by cardio for transfer out of ICU Patient was seen, examined and discussed with attending, Dr. aJnki Mckenna PGY1 Pager # [phone] <Brad Shearer - Last Filed: 07/12/17 10:14> CCU Objective - Vital Signs / Intake & Output Vital Signs (Last 4 hours): Vital Signs Pulse BP 07/12/17 09:21 111 H 101/50 L Intake and Output (Last 8hrs): Intake & Output 07/11/17 07/12/17 07/12/17 22:59 06:59 14:59 Intake Total 1238 100 Output Total 1300 Balance -62 100 Intake: IV 38 100 Left Forearm 38 Oral 1200 Output: Urine 1300 Urine, Voided 1300 Other: # Bowel Movements 1 - Medications Active Medications: Active Medications Generic Name Dose Route Start Last Admin Trade Name Freq PRN Reason Stop Dose Admin Acetaminophen 650 mg 07/12/17 03:43 07/12/17 03:53 Tylenol 325mg Tab PO 650 mg Q6H PRN Administration Fever >100.4 F Carvedilol 6.25 mg 07/12/17 10:00 07/12/17 09:21 Coreg PO 6.25 mg BID NATALIA Administration Famotidine 20 mg 07/11/17 22:00 07/11/17 21:24 Pepcid PO 20 mg HS NATALIA Administration Furosemide 40 mg 07/11/17 22:00 07/11/17 21:24 Lasix IVP 40 mg Q12 NATALIA Administration Milrinone Lactate/Dextrose 100 mls @ 7.619 mls/hr 07/11/17 13:39 07/12/17 01: 48 Primacor 20mg/100ml D5w IV 0.375 mcg/kg/min .Q13H8M PRN 7.619 mls/hr TITRATE PER MD ORDER Administration Protocol 0.375 MCG/KG/MIN Lisinopril 5 mg 07/11/17 13:45 07/11/17 13:54 Zestril PO 5 mg DAILY NATALIA Administration - Patient Studies Lab Studies: Lab Studies 07/12/17 07/12/17 Range/Units 06:00 06:00 WBC 5.7 (4.5-11.0) 10^3/ul RBC 4.51 (3.5-6.1) 10^6/uL Hgb 11.7 L (12.0-16.0) g/dL Hct 37.2 (36.0-48.0) % MCV 82.5 (80.0-105.0) fl MCH 25.9 (25.0-35.0) pg MCHC 31.5 (31.0-37.0) g/dl RDW 13.7 (11.5-14.5) % Plt Count 357 (120.0-450.0) 10^3/uL MPV 10.1 (7.0-11.0) fl Sodium 138 (132-148) mmol/L Potassium 3.8 (3.6-5.0) mmol/L Chloride 104 (98-107) mmol/L Carbon Dioxide 24 (21-33) mmol/L Anion Gap 14 (10-20) BUN 15 (7-21) mg/dL Creatinine 1.0 (0.7-1.2) mg/dl Est GFR ( Amer) > 60 Est GFR (Non-Af Amer) > 60 Random Glucose 102 (70-110) mg/dL Calcium 8.7 (8.4-10.5) mg/dL Magnesium 1.6 L (1.7-2.2) mg/dL Total Bilirubin 0.4 (0.2-1.3) mg/dL AST 48 H D (14-36) U/L ALT 46 (7-56) U/L Alkaline Phosphatase 197 H (38-126) U/L Total Protein 6.6 (5.8-8.3) g/dL Albumin 3.2 (3.0-4.8) g/dL Globulin 3.4 gm/dL Albumin/Globulin Ratio 1.0 L (1.1-1.8) Laboratory Results - last 24 hr 07/12/17 07/12/17 06:00 06:00 WBC 5.7 RBC 4.51 Hgb 11.7 L Hct 37.2 MCV 82.5 MCH 25.9 MCHC 31.5 RDW 13.7 Plt Count 357 MPV 10.1 Sodium 138 Potassium 3.8 Chloride 104 Carbon Dioxide 24 Anion Gap 14 BUN 15 Creatinine 1.0 Est GFR ( Amer) > 60 Est GFR (Non-Af Amer) > 60 Random Glucose 102 Calcium 8.7 Magnesium 1.6 L Total Bilirubin 0.4 AST 48 H D ALT 46 Alkaline Phosphatase 197 H Total Protein 6.6 Albumin 3.2 Globulin 3.4 Albumin/Globulin Ratio 1.0 L Assessment/Plan - Assessment and Plan (Free Text) Assessment: Patient seen and examined on rounds with resident, agree with note with following additions/exceptions: Patient is 31yo AAF, without sig PMHx, recently gave , , complicated by gestational diabetes, no CV problems, presented with SOB. Patient had CT chest with contrast done which showed NO PE, but did demonstrate bilateral pleural effusions, given Lasix 40mg IV x 1. ECHO done which showed severely impaired LVEF, elevated right sided pressures, and TR, consistent with peripartum cardiomyopathy Pt this morning reports to be feeling significantly better. CHF, acute systolic, cardiomyopathy SOB Pleural Effusions Recommend: - supp o2 as needed - monitor off abx, check procal - BP control, low dose ACEI - Primacor as per cardiology - Coreg 6.25mg BID - Lasix IV diuresis - CHF optimization - follow up cardiology, may need cath - ASA - GI ppx - DVT ppx - stable transfer to telemetry
--- NOTE | 2017-07-12 12:59 | PN ---
DATE: 07/12/2017 SUBJECTIVE: The patient's breathing is much improved. PHYSICAL EXAMINATION VITAL SIGNS: Blood pressure is 138/83, the heart rate is down to 105, sinus tachycardia. NECK: Negative JVD. LUNGS: Without rales. HEART: Reveals S1 and S2. EXTREMITIES: Without edema. LABORATORY DATA: BUN and creatinine are unremarkable. Potassium is 3.8, magnesium is 1.6. Hemoglobin is 11.7. IMPRESSION: 1. Acute systolic congestive heart failure. 2. cardiomyopathy. 3. Anemia. 4. Dyspnea is better. 5. Hypomagnesemia. 6. Mitral regurgitation. 7. Tricuspid regurgitation. PLAN: Given these findings, we will need to replace her magnesium today. The patient can be transferred to telemetry on IV Primacor. Lico Vazquez MD
[2017-07-13] MEDS: Milrinone 20mg/100ml D5W 100 ML IV PRN (02:45)
[2017-07-13 06:32] LABS: HEMOGLOBIN 11.7 g/dL (12.0-16.0); MEAN CELL VOLUME 82.6 fl (80.0-105.0); MEAN CORPUSCULAR HEMOGLOBIN 26.5 pg (25.0-35.0); MEAN CORPUSCULAR HGB CONC 32.1 g/dl (31.0-37.0); MEAN PLATELET VOLUME 10.2 fl (7.0-11.0); RBC 4.42 10^6/uL (3.5-6.1); RED CELL DISTRIBUTION WIDTH 13.4 % (11.5-14.5); WHITE BLOOD COUNT 5.7 10^3/ul (4.5-11.0)
[2017-07-13 07:06] LABS: ALBUMIN 3.3 g/dL (3.0-4.8); ALT/SGPT 41 U/L (7-56); AST/SGOT 34 U/L (14-36); BLOOD UREA NITROGEN 14 mg/dL (7-21); CALCIUM 9.2 mg/dL (8.4-10.5); GFR AFRICAN-AMERICAN > 60; GFR NON-AFRICAN AMERICAN > 60
--- NOTE | 2017-07-13 10:34 | PN ---
DATE: 07/12/2017 SUBJECTIVE: Patient is 31-year-old, seen and examined, lying in bed, seems to be comfortable. No chest pain. No shortness of breath. Palpitation has improved somewhat. PHYSICAL EXAMINATION: VITAL SIGNS: She is afebrile. Pulse 111, respirations 18, blood pressure 101/50. LUNGS: Bilateral fair airflow. No rhonchi or crackle. HEART: S1 and S2 audible. ABDOMEN: Soft, nontender. No rebound. No guarding. NEUROLOGIC: She is awake, alert, oriented, communicative. EXTREMITIES: Bilateral legs, no edema. Patient does complain of breast engorgement and is pumping milk. No fever or chills noted. LABORATORY DATA: WBC 5.7, hemoglobin 11.7, hematocrit 37, platelets 357,000. Chemistry: Sodium 138, potassium 3.8, chloride 104, CO2 24, BUN 15, creatinine 1.0, blood sugar 102, magnesium 1.6. AST 48, ALT 46, alkaline phosphatase is 197. Her echocardiogram showed left ventricle is mildly dilated, normal left ventricular wall thickness, systolic function is severely impaired. There is global hypokinesis. No left ventricular thrombus noted. Right ventricle is dilated also. Severely reduced function, mitral regurgitation is severe. There is severe tricuspid regurgitation and severe pulmonary hypertension. ASSESSMENT: 1. cardiomyopathy. 2. Pulmonary hypertension. 3. . 4. History of smoking. PLAN: Patient is currently on carvedilol. She is on Lasix 40 mg twice a day. She is on metoprolol. Her magnesium is being supplemented. She is on drip and she is clinically stable and will be transferred to TCU. We will follow up her electrolytes in the morning. Gil Mccord MD
[2017-07-13] MEDS ORDERED: Magnesium Sulfate 1 gm in D5W 1 GM/100 ML BAG IVPB ONE (12:50)
[2017-07-13] MEDS ORDERED: Potassium Chloride 20 mEq/15 ml LIQ UD PO STA (12:51)
--- NOTE | 2017-07-13 14:41 | PN ---
DATE: 07/13/2017 CARDIOLOGY FOLLOWUP SUBJECTIVE: The patient's breathing is much improved. She is able to ambulate in the room without shortness of breath. PHYSICAL EXAMINATION: VITAL SIGNS: Blood pressure 114/86, heart rate is in the 70s-80s. NECK: Negative JVD. LUNGS: Clear to auscultation. HEART: Reveals S1 and S2. EXTREMITIES: Without edema. LABORATORY DATA AND IMAGING: Magnesium is 1.8, potassium is 3.6, hemoglobin is 11.7. Echocardiogram reveals ejection fraction of 25%. In addition, there is significant mitral regurgitation, tricuspid regurgitation with a report of severe pulmonary hypertension. Given these findings, we will discontinue her Primacor today. Change her Lasix to p.o. Lasix. Replace her potassium. Replace her magnesium. We will increase her carvedilol to 12.5 b.i.d. In addition, her pulmonary pressures measured on echocardiogram are disturbing. It would be unlikely that the patient has developed such high pulmonary pressures acutely. Because of the importance of knowing what her pressures are, we will arrange for a cardiac catheterization in the morning. I have discussed this with the patient in detail. Risks and benefits have been discussed. The patient is agreeable. We will arrange for catheterization in the morning. Lico Vazquez MD
--- NOTE | 2017-07-13 15:23 | PN ---
DATE: SUBJECTIVE: The patient is 31 years old, seen and examined, seems to be very comfortable. She states less shortness of breath while on walking, still on Primacor drip. No nausea or vomiting. No diarrhea. Eating and tolerating. OBJECTIVE: VITAL SIGNS: She is afebrile, pulse 107, respirations 20, and blood pressure 114/86. LUNGS: Bilateral good airflow. No rhonchi or crackle. HEART: S1 and S2 audible. ABDOMEN: Soft, nontender. No rebound, no guarding. NEUROLOGIC: She is awake, alert, oriented, communicative. EXTREMITIES: Bilateral legs, no edema. LABORATORY DATA: WBC is 5.7, hemoglobin 11.7, hematocrit 36.5, and platelets 335. Chemistry: Sodium 138, potassium 3.6, chloride 101, CO2 of 26. BUN 14, creatinine 0.9. Blood sugar of 103. Alkaline phosphatase 193. ASSESSMENT: 1. Dilated cardiomyopathy. 2. Pulmonary hypertension. 3. Active smoker. 4. Severe tricuspid regurgitation. 5. Severe pulmonic valvular regurgitation. 6. Small circumferential pericardial effusion. PLAN: Discussed with Dr. Vazquez, thinking of doing cardiac cath to assess her pulmonary hypertension and LV function, and we will continue on her diuretic, carvedilol, and currently she is on Primacor drip and we will continue on lisinopril also. Gil Mccord MD
[2017-07-14] MEDS ORDERED: Lidocaine 2% Inj (20ml) ONE (07:08)
[2017-07-14] MEDS ORDERED: Phenylephrine 10 mg/ml Inj ONE (07:09)
[2017-07-14] MEDS ORDERED: Iohexol 350mgl/ml 50 ML ONE (07:09)
[2017-07-14] MEDS ORDERED: HEPARIN SODIUM/NS 2,000 ML IV ONE (07:09)
[2017-07-14] MEDS ORDERED: Iodixanol 320 MG/ML 100 ML BOTTLE IV ONE (07:25)
[2017-07-14] MEDS ORDERED: Iodixanol 320 MG/ML 200 ML BOTTLE IV ONE (07:45)
[2017-07-14] MEDS ORDERED: Midazolam 2 MG/2 ML VIAL ONE ×2 (07:45→08:11)
[2017-07-14 07:59] LABS: ALBUMIN 3.6 g/dL (3.0-4.8); ALT/SGPT 40 U/L (7-56); AST/SGOT 38 U/L (14-36); BLOOD UREA NITROGEN 14 mg/dL (7-21); CALCIUM 9.6 mg/dL (8.4-10.5); GFR AFRICAN-AMERICAN > 60; GFR NON-AFRICAN AMERICAN > 60
[2017-07-14] MEDS ORDERED: Magnesium Sulfate 1 gm in D5W 1 GM/100 ML BAG IVPB ONE (09:00)
[2017-07-14] MEDS ORDERED: Sodium Chloride 0.9% 1,000 ML IV SCH (09:00)
--- NOTE | 2017-07-14 12:59 | CARDCATH ---
PROCEDURE DATE: 07/14/2017 HISTORY: The patient is a 31-year-old woman, who presents with acute pulmonary edema and CHF. She was found to have a cardiomyopathy consistent with a cardiomyopathy. There were several issues that needed to be clarified. Her pulmonary pressures were found to be quite high on echocardiogram as well as mitral regurgitation was noted. In addition, we need to quantitate her LV function as well. Her urine test from the admission in the ER were positive for . We consulted with 2 ACCOUNTING ADMINISTRATOR experts, who said that the urine can be positive after for up to 6 weeks. In addition, in discussion with the patient, she has continued to have a small amount of vaginal bleeding since her delivery and she has stated without equivocation that she has not had sex since the baby's delivery. This is expressly since she had an episiotomy, which it is still uncomfortable for her. PROCEDURE: Right and left heart catheterization with coronary arteriography, left ventriculogram and aortic root injection. The right femoral artery was cannulated with a 6-Greek sheath. The right femoral vein was cannulated with a 7-Greek sheath. There were no complications. I performed moderate sedation, which included the presence of an independent trained observer that assisted in monitoring the patient's level of consciousness and physiologic status. After administration of Versed and fentanyl, my intra service time was 15 minutes. The findings on catheterization included right heart pressures, which revealed a right atrial mean pressure of 5 mmHg, the RV pressures were 41/5 mmHg, pulmonary artery pressures were 38/20 mmHg with a mean of 26 mmHg, mean pulmonary capillary wedge pressure was 15 mmHg. Left ventriculogram was performed in the FIGUEROA projection. In the FIGUEROA projection, the left is globally hypokinetic with an estimated ejection fraction of 25%. There was 2-3+ mitral regurgitation noted. Her coronary arteries revealed a right dominant circulation. The RCA was unremarkable. The left main artery was unremarkable. The LAD and diagonal vessels were within normal limits. The circumflex artery and obtuse marginal branches were within normal limits. Manual compression will be used to close the femoral artery site. The patient tolerated the procedure well. In summary, the procedure revealed mildly elevated pulmonary pressures. Dilated and diffusely hypokinetic left ventricle with an EF of 25%. 2-3+ mitral regurgitation was noted. Her coronary arteries are normal. Given these findings, the patient's findings are all consistent with a cardiomyopathy. She does not have severe pulmonary hypertension as noted in her echocardiogram. Her mitral regurgitation will need to be followed. Given these findings, the patient will be discharged on an ELIUD inhibitor, beta blockers and diuretics. In addition, we will supplement her potassium. We will need to follow her LV over the next several months. If her left ventricle does not improve from her cardiomyopathy, we will need to evaluate her state of her mitral regurgitation with the possibility of needing mitral valve surgery if her left ventricle and dilated annulus is not improved. In addition, I have discussed with her multiple times about the dangers of breast feeding her baby given the medications that she is on. Her baby can no longer receive breast-feeding nor the milk that she produces. Lico aVzquez MD
--- NOTE | 2017-07-14 15:45 | PCM.RRT ---
<Serena Bagley - Last Filed: 07/14/17 15:45> QUALITY INSPECTOR Nurse Assessment - Situation Date: 07/14/17 Time QUALITY INSPECTOR was called: 15:29 QUALITY INSPECTOR Responder Arrival Time: 15:30 QUALITY INSPECTOR Location:: [address] [place] [address] Room Number: [id number] QUALITY INSPECTOR Reason for Call: Hypotension QUALITY INSPECTOR Called By: Other Disciplines - IV IV Inserted during QUALITY INSPECTOR?: No - Respiratory Oxygen Delivery Method: Room Air Received Nebulizer Treatments:: No Was the Patient Ventilated with Bag/Mask 100% O2?: No Secretions Suctioned?: No Was the Patient Intubated?: No Was the Patient Placed on a Ventilator?: No - Medication Medications Administered During QUALITY INSPECTOR: none - Diagnostic Test Ordered EKG: Yes Chest X-Ray: No CT Scan: No CPR started during QUALITY INSPECTOR?: No - Vital Signs Vital Sign: Rapid Response Vital Sign Blood Pressure 84/51 Pulse Rate 114 Respiratory Rate 18 Temperature 98.2 F Oxygen Saturation 98 - Finger Stick Blood Glucose Finger Stick Blood Glucose: 108 - Time QUALITY INSPECTOR Ended Time QUALITY INSPECTOR Ended: 15:38 - Vital Signs at end of QUALITY INSPECTOR Vital Signs at end of QUALITY INSPECTOR: Rapid Response End Vital Sign Blood Pressure 98/65 Pulse Rate 104 Respiratory Rate 18 Temperature 98.2 F O2 Sat by Pulse Oximetry 93 - Recommendations 5) QUALITY INSPECTOR Level of Care Recommendations: Remain in current setting (speak to primary regarding holding discharge and observing patient for 24 hours) Notifications: Attending Physician I.Reason for QUALITY INSPECTOR - A) Acute Change in Patient: Subjective: Patient had near syncopal episode after using the commode as per RN - Neurological Status (Select all that apply): Alert, Responsive, Oriented, Verbal, Follows Commands - Respiratory Oxygen Delivery Method: Room Air - Constitutional Appears: Non-toxic, No Acute Distress - Head Head Exam: ATRAUMATIC, NORMAL INSPECTION, NORMOCEPHALIC - Eyes Eye Exam: EOMI, Normal appearance. absent: Conjunctival injection, Scleral icterus - Respiratory Exam Respiratory Exam: NORMAL BREATHING PATTERN. absent: Accessory Muscle Use, Respiratory Distress - Cardiovascular Exam Cardiovascular Exam: Tachycardia, +S1, +S2 - GI/Abdominal Exam GI & Abdominal Exam: Soft. absent: Tenderness - Neurological Exam Neurological Exam: Alert, Awake, Oriented x3 Plan - Assessment of Findings&Treatment Plan QUALITY INSPECTOR was called at 15:29 House doc, attending, and residents responded immediately. Patient was in bed and resting comfortably upon arrival. Patent was ao x 3 and stated she became dizzy after using the commode and felt like she was spinning. She denied any LOC or fall. Patient drank some water and reported feeling better. She received her medications this AM and had a cardiac cath this AM. Patient's vitals and labs were reviewed by team. Patient was due to be discharged today per Dr. Mccord which will be held. RN to inform Dr. Mccord and cardiology Dr. Vazquez regarding QUALITY INSPECTOR. Will check up on patient later today. <Gerson Vasques - Last Filed: 07/14/17 16:29> QUALITY INSPECTOR Nurse Assessment - Vital Signs Vital Sign: Rapid Response Vital Sign Blood Pressure 84/51 Pulse Rate 114 Respiratory Rate 18 Temperature 98.2 F Oxygen Saturation 98 - Vital Signs at end of QUALITY INSPECTOR Vital Signs at end of QUALITY INSPECTOR: Rapid Response End Vital Sign Blood Pressure 98/65 Pulse Rate 104 Respiratory Rate 18 Temperature 98.2 F O2 Sat by Pulse Oximetry 93 Attending/Attestation - Attestation I have personally seen and examined this patient.: Yes I have fully participated in the care of the patient.: Yes I have reviewed all pertinent clinical information, including history, physical exam and plan: Yes Notes (Text): 07/14/17 16:25 Patient was seen and examined with biomedical engineering director. Agreed with assessment and plan. Patient had episode of lightheadedness and dizziness while walking , likely due to orthostatic hypotension.Patient blood pressure has improved.There is no focal deficit.She is on room air.She is on lasix/ELIUD for Cardiomyopathy.She has been put on fall precaution.She was given education about orthostatic hypotension. Management plan was discussed in detail with patient and Nursing staff Education was provided.
[2017-07-14 16:20] VITALS: RESP 18
[2017-07-14 16:39] LABS: ALBUMIN 3.5 g/dL (3.0-4.8); ALT/SGPT 40 U/L (7-56); AST/SGOT 34 U/L (14-36); BLOOD UREA NITROGEN 16 mg/dL (7-21); CALCIUM 9.7 mg/dL (8.4-10.5); GFR AFRICAN-AMERICAN > 60; GFR NON-AFRICAN AMERICAN > 60
[2017-07-14 16:51] LABS: BASO # 0.02 K/mm3 (0.0-2.0); BASO % 0.4 % (0.0-3.0); EOS # 0.1 (0.0-0.7); GRAN # 2.74 (1.4-6.5); GRAN % 55.8 % (50.0-68.0); LYMPH # 1.6 (1.2-3.4); LYMPH % 32.5 % (22.0-35.0); MEAN CELL VOLUME 83.8 fl (80.0-105.0); MEAN CORPUSCULAR HEMOGLOBIN 26.7 pg (25.0-35.0); MEAN CORPUSCULAR HGB CONC 31.8 g/dl (31.0-37.0); MEAN PLATELET VOLUME 10.9 fl (7.0-11.0); MONO # 0.5 (0.1-0.6); MONO % 9.3 % (1.0-6.0); RBC 4.5 10^6/uL (3.5-6.1); RED CELL DISTRIBUTION WIDTH 13.4 % (11.5-14.5); WHITE BLOOD COUNT 4.9 10^3/ul (4.5-11.0)
--- NOTE | 2017-07-14 17:25 | CARD ---
APPROVED REPORT EKG Measurement Heart [id number] <Conclusion> Normal sinus rhythm Nonspecific T wave abnormality Prolonged QT Abnormal ECG
--- NOTE | 2017-07-14 18:54 | US ---
HISTORY: Leg pain and swelling. Evaluate for DVT PHYSICIAN(S): Lico Mendez MD. TECHNIQUE: Duplex sonography and color-flow Doppler with graded compression were used to evaluate the deep venous systems of both lower extremities. FINDINGS: The visualized deep venous systems of both lower extremities are sonographically normal and compressible. Normal wave forms and augmentation are seen. There is no sonographic evidence for deep venous thrombosis in the visualized segments of both lower extremities. IMPRESSION: No sonographic evidence for deep venous thrombosis in the visualized segments of both lower extremities.
[2017-07-15 06:20] VITALS: TEMP 98.6; O2SAT 97
[2017-07-15 09:20] VITALS: BP 117/78
[2017-07-15 10:34] VITALS: PULSE 106
--- NOTE | 2017-07-17 08:24 | DS ---
HISTORY OF PRESENT ILLNESS: The patient is a 31-year-old who gave to her baby on 06/26/2017. She was okay for a week or two but then she noticed that she had been having generalized weakness, leg swelling and she was getting more and more short of breath and was not able to lay flat. The patient does have history of anemia but because of increasing weakness and feeling dizzy and short of breath, she came to emergency room for further evaluation. The patient had echocardiogram done that shows four-chamber dilatation with severe tricuspid and mitral regurg, so the patient was started on Primacor drip. She was started on IV diuretics, ELIUD inhibitors, and carvedilol with significant improvement. She was taken to rn labor and delivery today and was found to have nonocclusive coronaries. Her pulmonary pressure was not as high; however, the patient did complain of leg pain yesterday, had stat leg Doppler done, negative for DVT. PHYSICAL EXAMINATION: GENERAL: On examination today, she is awake, alert, oriented, communicative. VITAL SIGNS: She is afebrile. Pulse 104, respirations 18, blood pressure 105/76. LUNGS: Bilateral good air flow. No rhonchi or crackle. HEART: S1 and S2 audible. ABDOMEN: Soft and nontender. No rebound, no guarding. NEUROLOGICAL: The patient is awake, alert, oriented, communicative, ambulatory. LABORATORY DATA: Chemistry: Sodium 140, potassium 4.4, chloride 103, CO2 of 26, BUN 14, creatinine 1.0, blood sugar 104, alk phos 197. ASSESSMENT AND PLAN: 1. Dilated cardiomyopathy. 2. cardiomyopathy. 3. History of active smoking even during . 4. Severe tricuspid regurgitation. 5. Mitral regurgitation. 6. History of anemia. 7. Left ventricular dysfunction with ejection fraction of 25%. 8. Tricuspid regurgitation. 9. Pulmonary hypertension. PLAN: The patient is being discharged home on carvedilol 12.5 twice daily, Lasix 40 mg daily, lisinopril 5 mg daily, and she will follow up with Dr. Vazquez and Dr. Nguyen as outpatient. Gil Mccord MD
--- NOTE | 2017-07-17 09:45 | PN ---
DATE: 07/15/2017 LOCATION: Patient in room 268, bed 2. This progress note is being dictated on behalf of Dr. Vazquez whom I am covering. REASON FOR CONSULTATION: cardiomyopathy. SUBJECTIVE: The patient lying flat in bed without chest pain, shortness of breath, palpitation. PHYSICAL EXAMINATION: VITAL SIGNS: Blood pressure is 117/78, respiration 18, pulse 98, temperature 98.6. HEENT: Head is normocephalic. Pupils normal. Conjunctivae normal. Nose and throat normal. NECK: JVP low. CARDIOVASCULAR: Cardiac sound normal. No rub. ABDOMEN: Soft. No organomegaly. EXTREMITIES: No clubbing, no cyanosis. LABORATORY DATA: WBC 4.9, hemoglobin 12.0, hematocrit 37.7, platelets of 348. Sodium 137, potassium 4.3, BUN 16, creatinine is 1.0, random sugar 112, yesterday sugar of 104, earlier was 103 and 102. Patient's protein and albumin normal. AST and ALT normal. Patient had cardiac cath yesterday due to cardiomyopathy. Coronary arteries were normal. Left ventricle is dilated and diffusely hypokinetic, EF 25%, 2% to 3% mitral regurg was noted. DIAGNOSES: cardiomyopathy, status post cardiac catheterization. Right heart catheterization showed right ventricular pressure of 41/5 mmHg, pulmonary artery pressure 38/20 mmHg, mean 26 mmHg, consists of very mild pulmonary hypertension. PLAN: Patient's cath site pulses are okay. There is no hematoma, there is no bleeding. Pulses are normal. The patient is asymptomatic, so patient will be discharged today with Lasix, beta-fozia and ELIUD inhibitors and she will follow in the office with and Dr. Vazquez. Gerson Clark MD
== END 2017-07-15 12:49 | disposition home or self-care (01) | DRG 376 ==
LOC: ED 12:54 → ERH 19:35 → CCU 22:05 → 2RNO 07-12 14:53
PROVIDERS: ADMIT Internal Medicine; ATTEND Internal Medicine
PROC: 4A023N8 Measurement of Cardiac Sampling and Pressure, Bilateral, Percutaneous Approach (ICD-10-PCS; principal; 2017-07-14)
PROC: B2111ZZ Fluoroscopy of Multiple Coronary Arteries using Low Osmolar Contrast (ICD-10-PCS; 2017-07-14)
PROC: B2161ZZ Fluoroscopy of Right and Left Heart using Low Osmolar Contrast (ICD-10-PCS; 2017-07-14)
PROC: B2151ZZ Fluoroscopy of Left Heart using Low Osmolar Contrast (ICD-10-PCS; 2017-07-14)
DX: O90.3 Peripartum cardiomyopathy (principal); I50.21 Acute systolic (congestive) heart failure; I08.1 Rheumatic disorders of both mitral and tricuspid valves; E83.42 Hypomagnesemia; I31.3 Pericardial effusion (noninflammatory); J98.11 Atelectasis; I11.0 Hypertensive heart disease with heart failure; Z82.49 Family history of ischemic heart disease and other diseases of the circulatory system; Z83.3 Family history of diabetes mellitus; D64.9 Anemia, unspecified; F17.210 Nicotine dependence, cigarettes, uncomplicated; I95.1 Orthostatic hypotension; Z91.013 Allergy to seafood; R40.2412 Glasgow coma scale score 13-15, at arrival to emergency department

== ENCOUNTER 2017-12-21 17:46 | Observation (INO) | payer BC, OTHER ==
--- NOTE | 2017-12-21 19:06 | ED PDOC ---
Arrival/HPI - General Time Seen by Provider: 12/21/17 18:23 Historian: Patient - History of Present Illness Narrative History of Present Illness (Text): 12/21/17 18:52 A 32 year old female, whose past medical history includes anemia and post- CHF, presents to the emergency department complaining of central chest pain. Patient reports recently having a cold from her son, and has had fever ( has taken Tylenol), central non-radiating chest pain (sore sensation as described by patient), and cough (twice a day; no phlegm, gagging sensation) for 4 days. Mentions never having chest pain like this before, and symptoms do not feel similar to CHF exacerbation. She explains always checks heart rate, which is 77 BPM at baseline, however recently has been 86-95 BPM. States last measurement of fever was 103.7. She denies any fever now. Patient denies any nausea, vomiting, diarrhea, abdominal pain, blood in cough, leg swelling, vaginal discharge/bleeding, or any other complaints at this time. Denies any history of surgeries, substance/etoh abuse, cancer, or any other complaints at this time. PMD: Dr. Shelley Nguyen Cardiologst: Dr. Vazquez 12/22/17 00:21 Time/Duration: Other (3d) Symptom Onset: Gradual Symptom Course: Intermittent Quality: Aching Severity Level: 3 Activities at Onset: Other Past Medical History - Provider Review Nursing Documentation Reviewed: Yes - Travel History Have you recently traveled outside [place] w/in the past 3 mons?: No - Cardiac Hx Cardiac Disorders: Yes Hx Congestive Heart Failure: Yes - Pulmonary Hx Respiratory Disorders: No - Neurological Hx Neurological Disorder: No - HEENT Hx HEENT Disorder: No - Renal Hx Renal Disorder: No - Endocrine/Metabolic Hx Endocrine Disorders: Yes Other/Comment: gestational - Hematological/Oncological Hx Blood Transfusions: No - Integumentary Hx Dermatological Disorder: No - Musculoskeletal/Rheumatological Hx Musculoskeletal Disorders: No Hx Falls: No - Gastrointestinal Hx Gastrointestinal Disorders: No - Genitourinary/Gynecological Hx Genitourinary Disorders: Yes Hx Sexually Transmitted Diseases: Yes - Psychiatric Hx Psychophysiologic Disorder: No Hx Substance Use: No - Anesthesia Hx Anesthesia Reactions: No Hx Malignant Hyperthermia: No Family/Social History - Physician Review Nursing Documentation Reviewed: Yes Family/Social History: No Known Family HX Smoking Status: Light Smoker < 10 Cigarettes Daily Hx Alcohol Use: Yes Hx Substance Use: No Allergies/Home Meds Allergies/Adverse Reactions: Allergies crabs Allergy (Uncoded 07/10/17 13:08) VOMITING Home Medications: Home Meds Medication Instructions Recorded Confirmed Multivit/Folic Acid/I 1 tab PO DAILY 07/10/17 07/10/17 [] Review of Systems - Physician Review All systems were reviewed & negative as marked: Yes - Review of Systems Constitutional: Fevers Eyes: Normal ENT: Normal Respiratory: Cough (no phlegm, no blood, gagging sensation) Cardiovascular: Chest Pain (soreness as described by patient.) Gastrointestinal: absent: Abdominal Pain, Diarrhea, Nausea, Vomiting Genitourinary Female: absent: Vaginal Bleeding, Vaginal Discharge Musculoskeletal: absent: Other (no leg swelling.) Neurological: Normal Endocrine: Normal Hemo/Lymphatic: Normal Physical Exam Vital Signs Temp Pulse Resp BP Pulse Ox 12/21/17 23:38 84 18 122/83 97 12/21/17 18:31 98 F 89 18 124/85 100 - Systems Exam Head: Present: Atraumatic, Normocephalic Pupils: Present: PERRL Extroacular Muscles: Present: EOMI Conjunctiva: Present: Normal Mouth: Present: Moist Mucous Membranes Nose (Internal): Present: Other (nasal congestion) Neck: Present: Normal Range of Motion Respiratory/Chest: Present: Clear to Auscultation, Good Air Exchange. No: Respiratory Distress, Accessory Muscle Use Cardiovascular: Present: Regular Rate and Rhythm, Normal S1, S2. No: Murmurs Abdomen: No: Tenderness, Distention, Peritoneal Signs Back: Present: Normal Inspection Upper Extremity: Present: Normal Inspection. No: Cyanosis, Edema Lower Extremity: Present: Normal Inspection. No: Edema Neurological: Present: GCS=15, CN II-XII Intact, Speech Normal Skin: Present: Warm, Dry, Normal Color. No: Rashes Psychiatric: Present: Alert, Oriented x 3, Normal Insight, Normal Concentration Medical Decision Making ED Course and Treatment: 12/21/17 18:57 Impression: 32 year old female with central non-radiating chest pain. Physical examination shows lungs are clear bilaterally; nasal congestion; no other acute findings. Plan: -- EKG -- Chest X-ray -- Labs -- Reassess and disposition Prior Visits: Notes and results from previous visits were reviewed. Patient was last seen in the emergency department on 07/10/2017 for dyspnea on exertion and orthopnea. Patient was admitted for CHF and cardiomyopathy. Progress Notes: XR unremarkable, labs unremarkable except BNP 340- ?baseline Given hx of recent viral exposure and hx of EF of 25% per pt, unclear etiology of current symptoms- will err on side of caution and consult cards and pmd for obs and likely echo. paged Dr. Vazquez x3- no response Appreciate consult w/ Cards manager instrumentation Dr. Kirkland: to see in am Appreciaet consult w/ PMD Dr. Mccord: to obs to her service, echo in am Echo ordered 12/22/17 00:25 - Lab Interpretations Lab Results: 12/21/17 19:20 12/21/17 19:20 Lab Results 12/21/17 19:20: Sodium 139, Potassium 4.4, Chloride 99, Carbon Dioxide 28, Anion Gap 16, BUN 13, Creatinine 0.8, Est GFR ( Amer) > 60, Est GFR (Non- Af Amer) > 60, Random Glucose 86, Calcium 9.5, Magnesium 2.3 H, Total Bilirubin 0.3, AST 43 H D, ALT 29, Alkaline Phosphatase 90, Troponin I < 0.01, NT-Pro-B Natriuret Pep 349, Total Protein 8.6 H, Albumin 4.5, Globulin 4.1, Albumin/ Globulin Ratio 1.1 12/21/17 19:20: WBC 6.1 D, RBC 4.31, Hgb 11.0 L, Hct 34.1 L, MCV 79.1 L D, MCH 25.5, MCHC 32.3, RDW 13.3, Plt Count 273, MPV 10.3, Gran % 35.5 L, Lymph % (Auto ) 51.1 H, [place] % (Auto) 9.1 H, Eos % (Auto) 3.8, Baso % (Auto) 0.5, Gran # 2.15 , Lymph # (Auto) 3.1, [place] # (Auto) 0.6, Eos # (Auto) 0.2, Baso # (Auto) 0.03 - RAD Interpretation Radiology Orders: 12/21/17 18:52 CHEST TWO VIEWS (PA/LAT) [RAD] Stat - EKG Interpretation Interpreted by ED Physician: Yes (NSR @83. no stemi) Type: 12 lead EKG - Scribe Statement The provider has reviewed the documentation as recorded by the Maluibamy Daniel Provider Scribe Attestation: All medical record entries made by the Scribe were at my direction and personally dictated by me. I have reviewed the chart and agree that the record accurately reflects my personal performance of the history, physical exam, medical decision making, and the department course for this patient. I have also personally directed, reviewed, and agree with the discharge instructions and disposition. Disposition/Present on Arrival - Present on Arrival Any Indicators Present on Arrival: No History of DVT/PE: No History of Uncontrolled Diabetes: No Urinary Catheter: No History Surgical Site Infection Following: None - Disposition Have Diagnosis and Disposition been Completed?: Yes Diagnosis: Chest pain Disposition: HOSPITALIZED Disposition Time: 23:00 Condition: GOOD
[2017-12-21 19:41] LABS: BASO # 0.03 K/mm3 (0.0-2.0); BASO % 0.5 % (0.0-3.0); EOS # 0.2 (0.0-0.7); EOS % 3.8 % (1.5-5.0); GRAN # 2.15 (1.4-6.5); GRAN % 35.5 % (50.0-68.0); LYMPH # 3.1 (1.2-3.4); LYMPH % 51.1 % (22.0-35.0); MEAN CELL VOLUME 79.1 fl (80.0-105.0); MEAN CORPUSCULAR HEMOGLOBIN 25.5 pg (25.0-35.0); MEAN CORPUSCULAR HGB CONC 32.3 g/dl (31.0-37.0); MEAN PLATELET VOLUME 10.3 fl (7.0-11.0); MONO # 0.6 (0.1-0.6); MONO % 9.1 % (1.0-6.0); RBC 4.31 10^6/uL (3.5-6.1); RED CELL DISTRIBUTION WIDTH 13.3 % (11.5-14.5); WHITE BLOOD COUNT 6.1 10^3/ul (4.5-11.0)
[2017-12-21 19:48] LABS: ALB/GLOB RATIO 1.1 (1.1-1.8); ALBUMIN 4.5 g/dL (3.0-4.8); ALT/SGPT 29 U/L (7-56); AST/SGOT 43 U/L (14-36); BLOOD UREA NITROGEN 13 mg/dL (7-21); CALCIUM 9.5 mg/dL (8.4-10.5); GFR AFRICAN-AMERICAN > 60; GFR NON-AFRICAN AMERICAN > 60
[2017-12-21 20:00] LABS: B-TYPE NATRIURETIC PEPTIDE 349 pg/mL (0-450); TROPONIN I < 0.01 ng/mL
[2017-12-22 00:36] VITALS: O2SAT 100
[2017-12-22 02:12] VITALS: BMI 95375.2
--- NOTE | 2017-12-22 09:50 | CARD ---
APPROVED REPORT Date of service: 12/21/2017 EKG Measurement Heart [id number] <Conclusion> Normal sinus rhythm ST_T Changes of Early Repolarization.
--- NOTE | 2017-12-22 10:19 | RAD ---
HISTORY: COMPARISON: 07/10/2017. TECHNIQUE: Chest PA and lateral FINDINGS: LINES AND TUBES: None. LUNG AND PLEURA: The lungs are well inflated and clear. No pleural effusion or pneumothorax. HEART AND MEDIASTINUM: The heart is not enlarged. The hilar and mediastinal contours are within normal limits. SKELETAL STRUCTURES: The bony structures are within normal limits for the patient's age. VISUALIZED UPPER ABDOMEN: Normal. OTHER FINDINGS: None. IMPRESSION: No active pulmonary disease.
[2017-12-22] MEDS ORDERED: Potassium Chloride 10 mEq ER Tab PO SCH (11:15)
[2017-12-22 11:26] VITALS: BP 113/67; PULSE 86; RESP 20; TEMP 98.2
--- NOTE | 2017-12-22 14:53 | HP ---
Copied To: Gil Mccord MD Attending MD: Gil Mccord MD HISTORY OF PRESENT ILLNESS: The patient is 32 years old, who delivered baby in July and came to emergency room because of increasing shortness of breath, was found to have cardiomyopathy. At that point, she has cardiac cath done that shows no occlusive coronary disease; however, she was found to have mitral regurg. However, echocardiogram done at that point shows ejection fraction of 25%. An echo done in September showed severe mitral regurg, moderate to severe left ventricular hypokinesia, dilated left ventricle and left atrium, moderate pulmonary hypertension. So, the patient came to emergency room because of chest pain. She states her son who is 5 months old had cold and probably she got from him. When she was coughing, she was having chest discomfort. She got scared, came to emergency room for evaluation. She had fever for 1 day; however, there is no documented fever since she is admitted. PAST MEDICAL HISTORY: Her past medical history otherwise is unremarkable except cardiomyopathy and exertional dyspnea. FAMILY HISTORY: Significant for hypertension and borderline diabetes. MEDICATIONS AT HOME: She is on carvedilol and lisinopril. She was on Lasix and potassium that have been continued. ALLERGIES: SHE IS ALLERGIC TO CRABS. SOCIAL HISTORY: She is . She smoked half pack a day. Socially drinks. 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 PHYSICAL EXAMINATION: GENERAL: She is awake, alert, oriented, communicative. VITAL SIGNS: She is afebrile, pulse 86, respirations 20, blood pressure 113/67. LUNGS: Bilateral fair airflow. No rhonchi or crackle. HEART: S1 and S2 audible. ABDOMEN: Soft. Nontender. No rebound. No guarding. NEUROLOGICAL: She is awake, alert, oriented, communicative. LABORATORY EXAM: WBC is 6.1, hemoglobin 11, hematocrit 34, platelet of 273. Chemistry: Sodium 139, potassium 4.4, chloride 99, CO2 of 16, BUN 13, creatinine 0.8, blood sugar of 86. LFTs are within normal limit. She had x-ray chest done that shows no active disease. ASSESSMENT: 1. Upper respiratory tract infection. 2. cardiomyopathy. 3. Mitral regurgitation. PLAN: The patient will be discharged home on Claritin and Robitussin. She will follow up with for severe mitral regurg and if she need valvuloplasty. The patient was seen by Dr. Vazquez and cleared from Cardiology point of view also, so she will be discharged home today on her usual medications that is carvedilol and lisinopril. Gil Mccord MD
--- NOTE | 2017-12-22 16:48 | CON ---
Copied To: Lico Vazquez MD Attending MD: Lico Vazquez MD DATE: 12/22/2017 CARDIOLOGY CONSULTATION HISTORY: The patient is a 32-year-old woman who presented with upper respiratory infection notable for increasing coughing. During her cough, she was experienced a little pleuritic chest discomfort. PAST MEDICAL HISTORY: Notable for recently diagnosed cardiomyopathy with significant mitral regurgitation. She has been treated with lisinopril as well as Coreg. In the past, she was sent to [facility] [place] for evaluation for possible mitral valve repair. It was decided by the cardiac surgeons that it would be more appropriate to wait for potential surgery to see whether her cardiomyopathy will improve. She denies shortness of breath. Denies edema in lower extremities. Denies anginal symptoms. SOCIAL HISTORY: The patient does not smoke. REVIEW OF SYSTEMS: A 14-point review of systems is reviewed in detail. No cardiac symptomatology is noted. PHYSICAL EXAMINATION: VITAL SIGNS: Blood pressure 113/67, heart rate in the 80s, normal sinus rhythm. NECK: Negative JVD. LUNGS: Without rales. HEART: Reveals S1, S2 with 2/6 systolic ejection murmur. EXTREMITIES: Without edema. LABORATORY DATA: Hemoglobin is 11. Chemistries, BUN and creatinine are unremarkable. Echocardiogram done in 09/2017, reveals a dilated cardiomyopathy with an ejection fraction of 33%. There is [id number] mitral regurgitation. IMPRESSION: 1. The patient's chest pain is secondary to her musculoskeletal pain from her cough secondary to upper respiratory infection. 2. cardiomyopathy. 3. Significant mitral regurgitation. 4. [id number] pulmonary hypertension. 5. Anemia. Given these findings, the patient's current cardiac status is stable. She is on continued monitoring by Cardiac Surgery as well as by Cardiology for the timing of when her mitral valve should be replaced. We will repeat an echocardiogram in 6 months. Lico Vazquez MD
== END 2017-12-22 13:36 | disposition home or self-care (01) ==
LOC: ED 17:46 → ERH 23:08 → 2RSO 12-22 00:32
PROVIDERS: ADMIT Internal Medicine; ATTEND Internal Medicine
DX: R07.89 Other chest pain (principal); J06.9 Acute upper respiratory infection, unspecified; I34.0 Nonrheumatic mitral (valve) insufficiency; I27.20 Pulmonary hypertension, unspecified; D64.9 Anemia, unspecified; O90.3 Peripartum cardiomyopathy; Z87.891 Personal history of nicotine dependence
CPT/HCPCS: 71046; 80053; 83735; 83880; 84484; 85025; 93005; 99285; G0378